=== PATIENT | female | born 2000 | race American Indian/Alaskan Native ===

== ENCOUNTER 2022-08-02 22:29 | Emergency (ER) | payer BC ==
[~2022-08-02] VITALS: Ht 157.5 cm; Wt 63.5 kg
[2022-08-03] MEDS ORDERED: PEPCID40 MG PO (01:38)
[2022-08-03] MEDS ORDERED: ONDANSETRON ODT4 MG PO (01:38)
== END 2022-08-03 01:44 ==
LOC: EMR PED 22:29 → ER 22:50
DX: F41.8 Other specified anxiety disorders (principal); R10.13 Epigastric pain